=== PATIENT | male | born 1960 | race Caucasian/White ===

== ENCOUNTER 2018-02-24 10:54 | Inpatient (IN) | payer OTHER ==
[2018-02-24 11:50] LABS: PLATELET COUNT 146 10^3/uL (150-400)
[2018-02-24] MEDS ORDERED: NS 500 ML IV ONE (12:33)
--- NOTE | 2018-02-24 12:56 | EDPHY ---
H & P Smoking Status: Never smoked Time Seen by Provider: 02/24/18 11:08 HPI/ROS: CHIEF COMPLAINT: Cellulitis right leg HISTORY OF PRESENT ILLNESS: 57-year-old male presents to the emergency department with pain and swelling to his right leg over last few days. He states that he has been come significantly more red, swollen and painful in the last 12 hr. The patient had a history of trauma to the right leg a number of years ago. About 3 years ago he developed a similar type infection in his right leg which required some type of operative drainage. He states that this feels similar. He is able to bear weight on it but it does cause pain. He has a history of a previous DVT as well. He had a fever of 100.9 last night. He took Tylenol prior to arrival. He denies pain in his right knee, however he does have pain in his right groin. Denies symptoms in the left lower extremity or upper extremities bilaterally. Denies abdominal pain. No chest pain or difficulty breathing. No rash. No acute trauma. REVIEW OF SYSTEMS: Constitutional: No fever, no chills. Eyes: No double or blurry vision. ENT: No sore throat. Respiratory: No cough, no shortness of breath. Cardiac: No chest pain. Gastrointestinal: No abdominal pain, vomiting or diarrhea. Genitourinary: No dysuria. Musculoskeletal: No neck or back pain. Skin: Infection right leg as above. Neurological: No headache. (Nany Mendoza) Past Medical/Surgical History: Appendectomy, bilateral hip replacements (Nany Mendoza) Social History: (Nany Mendoza) Physical Exam: General Appearance: Alert, no distress. Current temperature 37.4 degrees. Nontoxic appearing. 137/87 Eyes: Pupils equal and round. Extraocular motions are all intact. ENT: Mouth: Mucous membranes moist. Respiratory: No wheezing, rhonchi, or rales, lungs are clear to auscultation. Cardiovascular: Regular rate and rhythm. Gastrointestinal: Abdomen is soft and nontender, no masses, no rebound or guarding, bowel sounds normal. Neurological: Alert and oriented x 3, cranial nerves II through XII grossly intact Skin: Examination the right lower leg reveals the redness and swelling noted from the right proximal lower leg down to the ankle extending into the posterior aspect of the right distal calf. Diffusely tender to palpate especially to the anterior lateral aspect of the right leg. It is warm to the touch. He has some mild calf pain with palpation. There is no obvious lymphangitis. Musculoskeletal: Nontender to palpate along the cervical, thoracic or lumbar spine. Neck is supple. Extremities: Full range of motion of his upper extremities. Swelling noted to the right lower leg as noted above. Psychiatric: Patient is oriented X 3, there is no agitation. (Nany Mendoza) Constitutional: Initial Vital Signs Temperature (C) 37 C 02/24/18 10:57 Heart Rate 92 02/24/18 10:57 Respiratory Rate 18 02/24/18 10:57 Blood Pressure 137/87 H 02/24/18 10:57 O2 Sat (%) 93 02/24/18 10:57 O2 Delivery Mode Room Air Allergies/Adverse Reactions: shellfish derived Allergy (Verified 02/24/18 10:56) Swelling/neck,face,throat Home Medications: Medication Instructions Recorded Acetaminophen [Tylenol 325mg (*)] 325 mg PO DAILY PRN 02/24/18 Fexofenadine HCl [Kim Allergy] 60 mg PO DAILY 02/24/18 Fluticasone Nasal [Flonase Nasal 1 sprays NASAL DAILY 02/24/18 [place] (RX)] Medical Decision Making - Diagnostics Imaging: Discussed imaging studies w/ inbound call center representative Radiologist - Diagnostics Imaging Results: Imaging Impressions Extremity Venous Study 02/24/18 11:37 Impression: 1. Right inguinal adenopathy 2. No evidence of deep vein thrombosis in the right lower extremity. Results called and discussed with NANY MENDOZA, at 02/24/2018 12:15 ED Course/Re-evaluation: 57-year-old male presents to the emergency department with right leg cellulitis. The patient has obvious swelling in his right leg with pain and has a history of previous DVT. Doppler ultrasound reveals no evidence of DVT. The ultrasound does however reveal right inguinal lymphadenopathy. He has a white blood cell count of over 14,000. The patient reports fever of 100.9 last night. He took Tylenol prior to arrival. Initial lactate was 1.3. Blood cultures are pending. The case was discussed with Dr. Pina, secondary supervising physician, also evaluated the patient and agrees with admission. The patient will be treated with IV antibiotics and admitted to the hospitalist. (Nany Mendoza) Differential Diagnosis: Including but not limited to cellulitis, DVT, abscess, osteomyelitis, sepsis ( Nany Mendoza) Other Provider: Independent physician evaluation I evaluated and participated in the management of the patient. I also evaluated the patient independently. My co-signature indicates that I have reviewed this chart and I agree with the findings and plan of care as documented. My personal H&P findings include: The patient presents the ED with fever, right leg pain, swelling or redness. Patient has remote history of DVT. The patient denies any acute numbness or weakness. He denies history of fall or trauma. Physical exam: General Appearance: Alert, no distress Eyes: Pupils equal and round no pallor or injection ENT, Mouth: Mucous membranes moist Respiratory: There are no retractions, lungs are clear to auscultation Cardiovascular: Regular rate and rhythm Gastrointestinal: Abdomen is soft and nontender, no masses, bowel sounds normal Neurological: A&O, normal motor function, normal sensory exam, normal cranial nerves Skin: Warm and dry, no rashes Musculoskeletal: Neck is supple nontender Extremities: Asymmetric tenderness and swelling, cellulitic changes noted to the right pretibial region ED course: Ultrasound demonstrates no evidence of a DVT. Blood cultures x2 obtained. Patient's initial lactate is reassuring. The patient's cellulitis appears to be streptococcal in nature. The patient has been started on Ancef. Consultation is made with the hospitalist service for admission at 1:30 p.m.. He will be admitted by Dr. Mcdonald. (Brad Pina) - Data Points Laboratory Results: Laboratory Results 02/24/18 11:40 02/24/18 11:40 02/24/18 02/24/18 02/24/18 12:30 11:40 11:40 WBC 14.25 10^3/uL H 10^3/uL (3.80-9.50) RBC 5.87 10^6/uL 10^6/uL (4.40-6.38) Hgb 17.1 g/dL g/dL (13.7-17.5) Hct 51.0 % % (40.0-51.0) MCV 86.9 fL fL (81.5-99.8) MCH 29.1 pg pg (27.9-34.1) MCHC 33.5 g/dL g/dL (32.4-36.7) RDW 15.4 % H % (11.5-15.2) Plt Count 146 10^3/uL L 10^3/uL (150-400) MPV 11.3 fL fL (8.7-11.7) Neut % (Auto) 81.6 % H % (39.3-74.2) Lymph % (Auto) 7.6 % L % (15.0-45.0) [place] % (Auto) 9.5 % % (4.5-13.0) Eos % (Auto) 0.4 % L % (0.6-7.6) Baso % (Auto) 0.4 % % (0.3-1.7) Nucleat RBC Rel Count 0.0 % % (0.0-0.2) Absolute Neuts (auto) 11.64 10^3/uL H 10^3/uL (1.70-6.50) Absolute Lymphs (auto) 1.09 10^3/uL 10^3/uL (1.00-3.00) Absolute Monos (auto) 1.35 10^3/uL H 10^3/uL (0.30-0.80) Absolute Eos (auto) 0.05 10^3/uL 10^3/uL (0.03-0.40) Absolute Basos (auto) 0.05 10^3/uL 10^3/uL (0.02-0.10) Absolute Nucleated RBC 0.00 10^3/uL 10^3/uL (0-0.01) Immature Gran % 0.5 % % (0.0-1.1) Immature Gran # 0.07 10^3/uL 10^3/uL (0.00-0.10) VBG Lactic Acid 1.3 mmol/L mmol/L (0.7-2.1) Sodium 142 mEq/L mEq/L (135-145) Potassium 4.3 mEq/L mEq/L (3.3-5.0) Chloride 104 mEq/L mEq/L (97-110) Carbon Dioxide 25 mEq/l mEq/l (22-31) Anion Gap 13 mEq/L mEq/L (8-16) BUN 16 mg/dL mg/dL (7-23) Creatinine 1.2 mg/dL mg/dL (0.7-1.3) Estimated GFR > 60 Glucose 84 mg/dL mg/dL (70-100) Calcium 8.5 mg/dL mg/dL (8.5-10.4) Medications Given: Discontinued Medications Acetaminophen (Tylenol) 1,000 mg PO EDNOW ONE Stop: 02/24/18 13:24 Last Admin: 02/24/18 13:25 Dose: 1,000 mg Sodium Chloride (Ns) 500 mls @ 1,000 mls/hr IV EDNOW ONE PRN Reason: Protocol Stop: 02/24/18 13:02 Last Admin: 02/24/18 12:40 Dose: 500 mls Cefazolin Sodium/Dextrose (Ancef 1 Gm (Premix)) 50 mls @ 200 mls/hr IV EDNOW ONE PRN Reason: Protocol Stop: 02/24/18 13:40 Last Admin: 02/24/18 13:36 Dose: 50 mls Departure - Departure Disposition: [facility] Inpatient Acute Clinical Impression: Cellulitis of right leg Condition: Good
[2018-02-24] MEDS ORDERED: ACETAMINOPHEN 500 MG TAB PO ONE (13:23)
[2018-02-24] MEDS ORDERED: ONDANSETRON DISINTEGRATING 4 MG TAB PO PRN (14:01)
[2018-02-24] MEDS ORDERED: ONDANSETRON 4 MG/2 ML VIAL IVP PRN (14:01)
--- NOTE | 2018-02-24 14:42 | PDGENHP ---
History and Physical - Chief Complaint Acute leg pain - History of Present Illness PCP: Dr. Manriquez Primary ortho: Dr. Nathan Primary Surg: Dr. Granados HPI: 57 yo M p/w acute leg pain characterized as burning, located R anterior lower leg with associated fever to 100.9 degrees F, swelling, erythema, myalgias , fatigue and pain and swelling located in the right groin. Patient reports the onset of the myalgias and fatigue several days prior, and then the onset of the pain swelling and erythema in the right lower extremity on the evening prior. Over the past 12 hr, the affected area has particularly worsened. He reports the pain is exacerbated by ambulation. He has not taken any antibiotics as yet. He was concerned that the affected area was located exactly where he had had a previous abscess and drainage, and the present level of swelling is approximately half that avoid it was 3 years ago when the area required surgical I and D. He denies any recent trauma to the affected area and he denies any other symptoms. History Information - Allergies/Home Medication List Allergies/Adverse Reactions: shellfish derived Allergy (Verified 02/24/18 10:56) Swelling/neck,face,throat Home Medications: Acetaminophen [Tylenol 325mg (*)] 325 mg PO DAILY PRN 02/24/18 [Last Taken 02/24] Fexofenadine HCl [Kim Allergy] 60 mg PO DAILY 02/24/18 [Last Taken 2 Days Ago ~02/22/18] Fluticasone Nasal [Flonase Nasal [place] (RX)] 1 sprays NASAL DAILY 02/24/18 [ Last Taken 2 Days Ago ~02/22/18] I have personally reviewed and updated: family history, medical history, social history, surgical history - Past Medical History Additional medical history: Provoked DVT at age 15 in the left lower extremity, status post systemic anticoagulation. Trauma to the right lower extremity with subsequent cellulitis and abscess formation requiring I&D 3 years ago. Obstructive sleep apnea. Osteoarthritis bilateral hips - Surgical History Additional surgical history: Appendectomy. Deviated septum. Bilateral hip surgery in 2014. 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, has a trip planned for tomorrow, is independent in his ADLs Review of Systems Review of Systems: ROS: 10pt was reviewed & negative except for what was stated in HPI & below Constitutional: Reports: fever, malaise, weakness Skin: Reports: other (Erythema and swelling right lower extremity) Physical Exam Physical Exam: Temp Pulse Resp BP Pulse Ox 36.7 C 101 H 18 130/76 H 92 02/24/18 14:35 02/24/18 14:35 02/24/18 14:35 02/24/18 14:35 02/24/18 14:35 Constitutional: no apparent distress, appears nourished, obese, uncomfortable Eyes: PERRL, anicteric sclera, EOMI Ears, Nose, Mouth, Throat: moist mucous membranes, hearing normal, ears appear normal, no oral mucosal ulcers Cardiovascular: regular rate and rhythym, no murmur, rub, or gallop, edema (1+ right lower extremity) Respiratory: no respiratory distress, no rales or rhonchi, clear to auscultation Gastrointestinal: normoactive bowel sounds, soft, non-tender abdomen, no palpable masses Skin: other (Blanchable mildly tender erythema anterior right lower extremity with small area of possible skin break, previous area of scar tissue, no fluctuance) Musculoskeletal: other (Full range of motion right knee and right ankle without any painful limitation) Neurologic: AAOx3, sensation intact bilaterally, No weakness, No facial droop Psychiatric: interacting appropriately, not anxious, not encephalopathic, thought process linear Lymph, Heme, Immunologic: other (Tender right inguinal lymphadenopathy with distal right lower extremity lymphangitic streaking) Lab Data & Imaging Review 02/24/18 11:40 02/24/18 11:40 WBC 14.25 10^3/uL (3.80-9.50) H 02/24/18 11:40 RBC 5.87 10^6/uL (4.40-6.38) 02/24/18 11:40 Hgb 17.1 g/dL (13.7-17.5) 02/24/18 11:40 Hct 51.0 % (40.0-51.0) 02/24/18 11:40 MCV 86.9 fL (81.5-99.8) 02/24/18 11:40 MCH 29.1 pg (27.9-34.1) 02/24/18 11:40 MCHC 33.5 g/dL (32.4-36.7) 02/24/18 11:40 RDW 15.4 % (11.5-15.2) H 02/24/18 11:40 Plt Count 146 10^3/uL (150-400) L 02/24/18 11:40 MPV 11.3 fL (8.7-11.7) 02/24/18 11:40 Neut % (Auto) 81.6 % (39.3-74.2) H 02/24/18 11:40 Lymph % (Auto) 7.6 % (15.0-45.0) L 02/24/18 11:40 [place] % (Auto) 9.5 % (4.5-13.0) 02/24/18 11:40 Eos % (Auto) 0.4 % (0.6-7.6) L 02/24/18 11:40 Baso % (Auto) 0.4 % (0.3-1.7) 02/24/18 11:40 Nucleat RBC Rel Count 0.0 % (0.0-0.2) 02/24/18 11:40 Absolute Neuts (auto) 11.64 10^3/uL (1.70-6.50) H 02/24/18 11:40 Absolute Lymphs (auto) 1.09 10^3/uL (1.00-3.00) 02/24/18 11:40 Absolute Monos (auto) 1.35 10^3/uL (0.30-0.80) H 02/24/18 11:40 Absolute Eos (auto) 0.05 10^3/uL (0.03-0.40) 02/24/18 11:40 Absolute Basos (auto) 0.05 10^3/uL (0.02-0.10) 02/24/18 11:40 Absolute Nucleated RBC 0.00 10^3/uL (0-0.01) 02/24/18 11:40 Immature Gran % 0.5 % (0.0-1.1) 02/24/18 11:40 Immature Gran # 0.07 10^3/uL (0.00-0.10) 02/24/18 11:40 VBG Lactic Acid 1.3 mmol/L (0.7-2.1) 02/24/18 12:30 Sodium 142 mEq/L (135-145) 02/24/18 11:40 Potassium 4.3 mEq/L (3.3-5.0) 02/24/18 11:40 Chloride 104 mEq/L (97-110) 02/24/18 11:40 Carbon Dioxide 25 mEq/l (22-31) 02/24/18 11:40 Anion Gap 13 mEq/L (8-16) 02/24/18 11:40 BUN 16 mg/dL (7-23) 02/24/18 11:40 Creatinine 1.2 mg/dL (0.7-1.3) 02/24/18 11:40 Estimated GFR > 60 02/24/18 11:40 Glucose 84 mg/dL (70-100) 02/24/18 11:40 Calcium 8.5 mg/dL (8.5-10.4) 02/24/18 11:40 Assessment & Plan Assessment: 57-year-old male presents with acute right lower extremity cellulitis Plan: 1. Cellulitis. Acute, new problem this provider, further workup indicated. Located in the right lower extremity with lymphangitic streaking, high risk for bacteremia as well as high risk for subsequent septic arthritis if suboptimally managed -order outside records from [facility] detailing his most recent microbiology culture results, surgical report, discharge summary from approximately 3 years ago -ultrasound demonstrating no evidence of DVT -get x-ray to ensure no gas subcutaneously -demarcate the margins and if area is expanding, will get MRI, will get surgical consultation to ensure no necrotizing fasciitis and will also broaden antibiotics from the present Ancef dosing to vancomycin -no previous history of MRSA, monitor response to Ancef -monitor fever curve and white blood cell count 2. Osteoarthritis. Chronic, reviewed outside records including 09/05/[address] Yonathan Nathan, reports the patient had left hip arthroplasty for osteoarthritis, patient currently has full range of motion of his bilateral hips without any evidence of septic arthritis, continue monitor given the severity of his lower extremity cellulitis Diet. Regular Prophylaxis. High risk patient, Lovenox 40 Code. Full Disposition. Anticipated discharge is 02/25, pending stabilization of condition outlined above. I have discussed patient's presentation with Eileen Vale, hospitalist provider , she has signed out the patient to me for evaluation.
[2018-02-24] MEDS: ACETAMINOPHEN 325 MG TAB PO PRN ×2 (17:22→21:41)
[2018-02-24] MEDS: ceFAZolin 2 GM/DEXTROSE 100 ML IV SCH (21:51)
[2018-02-25] MEDS: oxyCODONE IR 5 MG TAB PO PRN ×3 (01:37→06:28)
[2018-02-25 05:18] LABS: PLATELET COUNT 131 10^3/uL (150-400)
[2018-02-25] MEDS: ceFAZolin 2 GM/DEXTROSE 100 ML IV SCH ×3 (05:20→21:53)
[2018-02-25] MEDS: ENOXAPARIN 40 MG/0.4 ML SYR SC SCH (08:41)
[2018-02-25] MEDS: CETIRIZINE 10 MG TAB PO SCH (08:41)
[2018-02-25] MEDS: FLUTICASONE NASAL 120 SPRAYS/16 GM MDI EACHNARE SCH (08:44)
--- NOTE | 2018-02-25 11:27 | ASMTCMCOM ---
CM Note CM Note Notes: Pt admitted for R leg cellulitis. He is currently on IV ABX but may switch to oral prior to DC. CM will continue to follow. Date Signed: 02/25/2018 11:26 AM Electronically Signed By:Violeta Torres LCSW
[2018-02-25] MEDS ORDERED: LACTULOSE 20 GM/30 ML UDCUP PO PRN (11:46)
[2018-02-25] MEDS ORDERED: POLYETHYLENE GLYCOL 3350 17 GM PKT PO PRN (11:46)
[2018-02-25] MEDS ORDERED: MAGNESIUM HYDROXIDE 30 ML UDCUP PO PRN (11:46)
[2018-02-25] MEDS ORDERED: BISACODYL 10 MG SUPP PR PRN (11:46)
[2018-02-25] MEDS: SENNOSIDES/DOCUSATE SODIUM TAB PO SCH ×2 (12:51→21:53)
--- NOTE | 2018-02-25 16:14 | HOSPPROG ---
Hospitalist Progress Note Assessment/Plan: Assessment: 57-year-old male presents with acute right lower extremity cellulitis Plan: 1. Cellulitis. Acute, located in the right lower extremity with lymphangitic streaking, remains clinically unresolved today w/ persistent blanchable erythema and tenderness, but has mildly receded from the margins, R groin LAD is improving, and last fever 8 p.m. last night -reviewed outside records from [facility] detailing surgical I&D by Dr. Granados -ultrasound demonstrating no evidence of DVT -x-ray w/o gas, personally interpreted -requires additional 24hrs of IV abx given persistently elevated WBC (14,000), repeat in AM, monitor for persistent fevers -if failure to clinically improve in AM, will consult w/ ID and consider broadening Abx coverage to include MRSA -counseled patient and extensively regarding this plan, outlined above 2. Osteoarthritis. Chronic, no e/o septic arthritis Diet. Regular Prophylaxis. High risk patient, Lovenox 40 Code. Full Disposition. Anticipated discharge is uncertain, clinically unresolved, upgrade to INPT admission status as he has failed initial trial of IV Abx and requires ongoing close monitoring for improvement. Subjective: less pain in R groin, last fever 8 p.m. last night, ongoing swelling RLE Objective: Vital Signs Temp Pulse Resp BP Pulse Ox 36.8 C 89 16 124/76 H 91 L 02/25/18 11:05 02/25/18 11:05 02/25/18 11:05 02/25/18 11:05 02/25/18 11:05 Laboratory Results 02/25/18 04:52 02/25/18 04:52 02/24/18 02/25/18 02/26/18 05:59 05:59 05:59 Intake Total 1050 Balance 1050 - Time Spent With Patient Time Spent with Patient: greater than 35 minutes Time Spent with Patient: Greater than 35 minutes spent on this patients care, greater than 50% of time spent counseling, educating, and coordinating care regarding the above mentioned plan. - Physical Exam Constitutional: no apparent distress, not in pain, obese, No uncomfortable Cardiovascular: regular rate and rhythym, no murmur, rub, or gallop, edema (1+ RLE) Respiratory: no respiratory distress, no rales or rhonchi, clear to auscultation Gastrointestinal: normoactive bowel sounds, soft, non-tender abdomen, no palpable masses Skin: erythema (blanchable, confluent, tender anterior RLE), No fluctuance Musculoskeletal: other (full flexion w/o pain in R knee and full ROM R ankle w/ o pain) Neurologic: AAOx3, sensation intact bilaterally, No weakness Psychiatric: interacting appropriately, not anxious, not encephalopathic, thought process linear ICD10 Worksheet Patient Problems: Problems Problem Status Onset Primary osteoarthritis of right hip Acute Primary osteoarthritis of left hip Acute Cellulitis of right leg Acute
--- NOTE | 2018-02-25 16:39 | PDMN ---
Medical Necessity Medical necessity: Patient meets inpatient criteria per physician note and [facility] [place] M -70 Cellulitis (ongoing RLE cellulitis w/lymphangitis, s/p I&D at [facility]; LOS will be > 2 midnights for ongoing IV antibiotics for persistently elevated WBC > 14,000, possible ID consult if no improvement.)
[2018-02-26 04:43] LABS: PLATELET COUNT 164 10^3/uL (150-400)
[2018-02-26] MEDS: ceFAZolin 2 GM/DEXTROSE 100 ML IV SCH ×3 (05:21→22:03)
[2018-02-26] MEDS: ENOXAPARIN 40 MG/0.4 ML SYR SC SCH (09:46)
[2018-02-26] MEDS: FLUTICASONE NASAL 120 SPRAYS/16 GM MDI EACHNARE SCH (09:54)
[2018-02-26] MEDS: SENNOSIDES/DOCUSATE SODIUM TAB PO SCH ×2 (09:55→21:58)
[2018-02-26] MEDS: CETIRIZINE 10 MG TAB PO SCH (09:55)
--- NOTE | 2018-02-26 17:38 | HOSPPROG ---
Hospitalist Progress Note Assessment/Plan: Assessment: 57-year-old male presents with acute right lower extremity cellulitis Plan: 1. Cellulitis. Acute, located in the right lower extremity with lymphangitic streaking, remains clinically unresolved today w/ persistent blanchable erythema , leukocytosis, and organization into a fluid-filled patch of soft tissue on the posterior R calf, but has mildly receded from the margins, R groin LAD is improving, afebrile, and patient feels less lethargic -ultrasound demonstrating no evidence of abscess formation ant/post RLE, so no indication for surgical eval -d/w Dr. Spring, we agreed that, since it appears that he is clinically improving, we should continue w/ staph/strep coverage w/ IV Ancef, but cont additional 24hrs of IV abx given persistently elevated WBC (12,500) and organizing area on R posterior calf, repeat in AM -aggressively elevate RLE when in bed -if failure to clinically improve in AM, rec formal consult w/ ID and consider broadening Abx coverage to include MRSA -counseled patient and extensively regarding this plan, outlined above 2. Osteoarthritis. Chronic, no e/o septic arthritis Diet. Regular Prophylaxis. High risk patient, Lovenox 40 Code. Full Disposition. Anticipated discharge is 02/27, remains clinically unresolved Subjective: less lethargic, no subj fevers, feels like posterior R calf is somewhat more bubbly, patch in R groin less indurated Objective: Vital Signs Temp Pulse Resp BP Pulse Ox 36.8 C 99 18 138/86 H 91 L 02/26/18 16:00 02/26/18 16:00 02/26/18 16:00 02/26/18 16:00 02/26/18 16:00 Laboratory Results 02/26/18 04:25 02/26/18 04:25 02/25/18 02/26/18 02/27/18 05:59 05:59 05:59 Intake Total 700 Balance 700 - Time Spent With Patient Time Spent with Patient: greater than 35 minutes Time Spent with Patient: Greater than 35 minutes spent on this patients care, greater than 50% of time spent counseling, educating, and coordinating care regarding the above mentioned plan. ICD10 Worksheet Patient Problems: Problems Problem Status Onset Primary osteoarthritis of right hip Acute Primary osteoarthritis of left hip Acute Cellulitis of right leg Acute
[2018-02-26] MEDS: ACETAMINOPHEN 325 MG TAB PO PRN (20:35)
[2018-02-27 04:35] LABS: PLATELET COUNT 182 10^3/uL (150-400)
[2018-02-27] MEDS: ceFAZolin 2 GM/DEXTROSE 100 ML IV SCH ×3 (06:27→21:25)
[2018-02-27] MEDS: ENOXAPARIN 40 MG/0.4 ML SYR SC SCH (09:42)
[2018-02-27] MEDS: FLUTICASONE NASAL 120 SPRAYS/16 GM MDI EACHNARE SCH (10:18)
[2018-02-27] MEDS: CETIRIZINE 10 MG TAB PO SCH (10:18)
[2018-02-27] MEDS: SENNOSIDES/DOCUSATE SODIUM TAB PO SCH ×2 (10:18→21:22)
--- NOTE | 2018-02-27 13:11 | GCON ---
[f rep st] CONSULTATION INFECTIOUS DISEASE CONSULT DATE OF CONSULTATION: 02/27/2018 REQUESTING CONSULT: Dr. Dennise Vera. REASON FOR CONSULT: To assist in the management of this 57-year-old male with severe right lower extremity cellulitis. HISTORY OF PRESENT ILLNESS: The patient is a very pleasant 57-year-old male whose previous medical history is notable for the followin. Obesity. 2. A history of provoked DVT in the left lower extremity at age 15. 3. History of obstructive sleep apnea. 4. Osteoarthritis, both hips. 5. History of MSSA pretibial abscess on the right lower extremity in February of 2012 after trauma from a baseball. This required incision and drainage by Dr. Duane Gong, and cultures grew MSSA. 6. History of right lower extremity cellulitis 1 year ago, treated with oral antibiotics, not seen by our service. PREVIOUS SURGICAL HISTORY: 1. Appendectomy. 2. Bilateral hip replacement surgeries in 2014. 3. History of incision and drainage of right lower extremity pretibial abscess in 2011, as outlined above. Regarding his present issues, the patient states that he was in his usual state of good health until last Thursday evening when he developed onset of chills. The patient states on Thursday, he noticed that his right lower extremity was swollen and painful and, on February 24, he presented to the emergency department for further evaluation and treatment, given his history of cellulitis in this extremity previously. The patient states that this was much worse compared with previous. The patient had also reported a temperature to almost 101. In the ER, the patient had a temperature of 37.4 and was noted to have severe cellulitis in his right lower extremity. Ultrasound was negative for deep venous thrombosis. He was admitted to the hospitalist service and started on Ancef. The patient, over the past couple of days, has continued to have a leukocytosis and right lower extremity erythema; therefore, another ultrasound was done yesterday to rule out developing phlegmon or abscess of the area. This was negative. Given his ongoing erythema, I am now asked to assist in his management. Speaking with the patient today, he tells me that the leg is markedly better compared with admission, and it is not painful at all any longer. He is able to ambulate. He admits that he has not been keeping his leg elevated, and was just told last night by the night nurse to keep it up. He denies any nausea, vomiting, abdominal pain, diarrhea, burning with urination, or other. He states that he is not sure exactly how he got the cellulitis and denies any antecedent trauma. He was working with a weed whacker prior to this occurring and is curious if some grass perhaps nicked his leg, as his had noticed a very small, superficial, perhaps less than dime-sized abrasion in his pretibial area that I can no longer appreciate. He also has tinea cruris and tinea pedis bilaterally. REVIEW OF SYSTEMS: As outlined above. Otherwise, 10 systems are reviewed, and all are negative. PREVIOUS MEDICAL HISTORY: As outlined above. ALLERGIES: Shellfish causes hives. 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 No tobacco. Two drinks per night. No illicit substances. No recent travel. The patient does have a hot tub, but states that his last use of the hot tub was over a month ago. He keeps it clean and chlorinated. The patient has a dog who is healthy and has not been licking him, scratching him, or biting him. No other travel or relevant exposure history. The patient believes his last tetanus booster was in the past 5 years. FAMILY HISTORY: Notable for mother with non-small cell lung carcinoma. Sister with leukemia. PHYSICAL EXAM: VITAL SIGNS: T current is 36.9, T-max 37.3, heart rate 82, blood pressure 135/88. GENERAL: Overweight male, very pleasant, nontoxic, no apparent distress. HEENT: Atraumatic, normocephalic. Pupils equal, round, react to light. Extraocular movements are intact. No conjunctival injection, icterus, or petechiae. Mucous membranes moist. No oral lesions noted. Dentition in excellent repair. No cervical or supraclavicular lymphadenopathy. CARDIOVASCULAR: S1, S2. No rubs, gallops, or murmurs. LUNGS: No increased respiratory effort. Clear to auscultation bilaterally with no rales, rhonchi, or wheeze. ABDOMEN: Obese, soft. No tenderness to palpation. : Circumcised phallus. The patient has skin maceration in between his inguinal fold consistent with tinea cruris. EXTREMITIES: Left lower extremity is unremarkable. Right lower extremity is notable for a large patch of blanching erythema on his anterior thigh. There is no lymphadenitis. The right lower extremity is notable for swelling and circumferential erythema that is pinkish and blanching. There is a patch of darker raised erythema behind the calf that is not bullous and not particularly tender. There is no squeeze tenderness of the gastrocnemius muscle. The patient has tinea pedis between the web spaces of his toes bilaterally. The patient has no tingling or numbness in the area. LABORATORY DATA: White blood cell count of 11.2, down from 14, hematocrit 47, platelet count of 182. BUN and creatinine 16/1.1. Microbiologic data: Blood cultures x2 on January 25: No growth. Radiographic data as outlined above. IMPRESSION: 57-year-old male admitted with severe right lower extremity cellulitis. Presentation is most significant with streptococcal etiology. There is no evidence of pyomyositis, necrotizing fasciitis or developing abscess at this point in time, and the cellulitis is improving. Please see below for plan. PLAN: 1. The patient is not ready for discharge presently. Would continue IV Ancef 2 g IV q.8 hours for now at least through the weekend, and he is agreeable. 2. The patient needs to keep his leg elevated, and the rationale behind this was explained to him. 3. Will reassess on Thursday, at which point if he continues to have significant clinical improvement, may be able to transition to oral therapy. If it does not show significant improvement, will likely need a brief course of IV therapy , but can use once daily Ceftriaxone. (hopefully through a peripheral IV) 4. For tinea cruris, will use nystatin powder twice daily. 5. For tinea pedis, will use clotrimazole cream. The patient understands he will need to use this for several weeks if not months. Thank you very much for consulting Infectious Disease. We will continue to follow this patient with you. /[id number]/MODL MTDD
[2018-02-27] MEDS: CLOTRIMAZOLE 1% 15 GM CRTUBE TP SCH ×2 (14:27→21:21)
--- NOTE | 2018-02-27 15:41 | HOSPPROG ---
Hospitalist Progress Note Assessment/Plan: * RLE cellulitis with lymphangitic spread -IV Ancef -ID consult - d/w Dr. Rojas - may need home on IV abx due to severity * Obesity BMI 36 with DION * Tinea pedis -clotrimazole * Tinea cruris -nystatin * h/o DVT Subjective: Better Objective: Vital Signs Temp Pulse Resp BP Pulse Ox 36.9 C 85 17 152/90 H 92 02/27/18 12:30 02/27/18 12:30 02/27/18 12:30 02/27/18 12:30 02/27/18 12:30 Laboratory Results 02/27/18 04:20 02/26/18 04:25 02/26/18 02/27/18 02/28/18 05:59 05:59 05:59 Intake Total 700 2050 500 Balance 700 2050 500 RLE US - negative for DVT - Physical Exam Constitutional: no apparent distress, appears nourished, not in pain Cardiovascular: regular rate and rhythym, no murmur, rub, or gallop Respiratory: no respiratory distress, no rales or rhonchi, clear to auscultation Gastrointestinal: normoactive bowel sounds, soft, non-tender abdomen, no palpable masses Skin: erythema, rash, other (severe RLE cellulitis with lymphangitic spread), No induration Neurologic: AAOx3, sensation intact bilaterally Psychiatric: interacting appropriately, not anxious, not encephalopathic, thought process linear ICD10 Worksheet Patient Problems: Problems Problem Status Onset Cellulitis of right leg Acute Primary osteoarthritis of left hip Acute Primary osteoarthritis of right hip Acute
--- NOTE | 2018-02-27 16:06 | ASMTCMCOM ---
CM Note CM Note Notes: Patient was seen by ID today - he's not yet ready for d/c, and they will re-evaluate Thursday. If he's not able to transition to PO abx, he'll need a short course of once daily Ceftiraxone. If that's the case, we'll send a referral to an infusion company or he may come to the infusion center. Case Management will follow. Date Signed: 02/27/2018 04:05 PM Electronically Signed By:Janine Bailon RN
[2018-02-27] MEDS: NYSTATIN POWDER 15 GM BTL TP SCH ×2 (16:21→21:22)
[2018-02-27] MEDS: diphenhydrAMINE 25 MG CAP PO PRN (21:50)
[2018-02-28] MEDS: ceFAZolin 2 GM/DEXTROSE 100 ML IV SCH ×3 (05:54→20:56)
[2018-02-28] MEDS: ENOXAPARIN 40 MG/0.4 ML SYR SC SCH (08:55)
[2018-02-28] MEDS: CLOTRIMAZOLE 1% 15 GM CRTUBE TP SCH ×2 (08:56→17:28)
[2018-02-28] MEDS: NYSTATIN POWDER 15 GM BTL TP SCH ×3 (08:56→20:44)
--- NOTE | 2018-02-28 11:35 | HOSPPROG ---
Hospitalist Progress Note Assessment/Plan: The patient is a 57-year-old male with PMH DION, left lower extremity cellulitis/ abscess who was admitted for severe left lower extremity cellulitis and lymphangitis. ASSESSMENT/PLAN: Left lower extremity cellulitis and lymphangitis DION Osteoarthritis bilateral hips Obesity -continue IV antibiotic -consider to discharge to home tomorrow. If infection continues to improve, may switch to p.o. Antibiotics on discharge. -continue to ambulate. VTE prophylaxis: Lovenox Code Status: Full code Status: Inpatient for greater than 2 midnight stay. Disposition: Med surg with discharge anticipated tomorrow. This patient is new to me. Reviewed patient's chart/records for this visit. ____ Subjective: Today patient feels much better. Objective: Vital Signs Temp Pulse Resp BP Pulse Ox 36.8 C 74 14 140/91 H 92 02/28/18 08:31 02/28/18 08:31 02/28/18 08:31 02/28/18 08:31 02/28/18 08:31 Laboratory Results 02/27/18 04:20 02/26/18 04:25 02/27/18 02/28/18 03/01/18 05:59 05:59 05:59 Intake Total 2049 1049 Balance 2049 1049 OBJECTIVE: Physical Exam: General: The patient is a male who is alert and in no acute distress. HEENT: normocephalic, extraocular movements intact, conjunctivae clear. Mucous membranes moist. Neck: trachea midline, no visible masses. CV: +S1/S2, RRR, no MRG. Resp: unlabored, CTAB no RRW. Abd: soft and nondistended. Musculoskeletal: Normal muscle tone/bulk. Neuro: cranial nerves II XII grossly intact. Intact gross motor and sensory function. Psych: Appropriate mood and appropriate affect. Skin: No pallor. No petechiae. + erythema of left lower extremity noted, much less than demarcated areas. Heme/lymph: +2 pitting peripheral edema at left lower extremity. Labs/Imaging/Other Tests: Personally reviewed/interpreted. ICD10 Worksheet Patient Problems: Problems Problem Status Onset Cellulitis of right leg Acute Primary osteoarthritis of left hip Acute Primary osteoarthritis of right hip Acute
[2018-02-28] MEDS: SENNOSIDES/DOCUSATE SODIUM TAB PO SCH ×2 (11:46→20:56)
[2018-02-28] MEDS: CETIRIZINE 10 MG TAB PO SCH (11:46)
[2018-02-28] MEDS: FLUTICASONE NASAL 120 SPRAYS/16 GM MDI EACHNARE SCH (11:46)
--- NOTE | 2018-02-28 14:16 | PCMIDPN ---
Assessment/Plan: 1. Right lower extremity cellulitis, likely streptococcal etiology: Marked improvement in 24 hr with leg elevation! Continue Ancef as is. The patient is hoping not to have to continue IV antibiotics after tomorrow, but there is a chance he may need another few days of IV's; could use once daily ceftriaxone if necessary. At this point, told him that chances are 50 /50. Will reassess tomorrow. 02/28/18 14:16 Subjective: In good spirits. Sitting in chair, with leg elevated. No diarrhea. Objective: Ancef 2 g IV q.8 hours day 4 No fevers Vital Signs Temp Pulse Resp BP Pulse Ox 36.6 C 82 16 141/97 H 91 L 02/28/18 11:55 02/28/18 11:55 02/28/18 11:55 02/28/18 11:55 02/28/18 11:55 Laboratory Results 02/27/18 04:20 02/26/18 04:25 02/27/18 02/28/18 03/01/18 05:59 05:59 05:59 Intake Total 2049 105 Balance 2049 105 No new microbiology - Physical Exam General Appearance: no apparent distress, obese Extremities: other (Right lower extremity: Patch of erythema on the thigh is pinkish and has faded significantly over the past 24 hr since I saw him last. Right lower extremity skin is puckering, and swelling is down. Erythema is more pinkish has improved. Raised erythematous area on the back side of his calf is about the same. No squeeze tenderness of the gastrocnemius.) ICD10 Worksheet Patient Problems: Problems Problem Status Onset Cellulitis of right leg Acute Primary osteoarthritis of left hip Acute Primary osteoarthritis of right hip Acute
[2018-02-28] MEDS: diphenhydrAMINE 25 MG CAP PO PRN (20:55)
[2018-03-01 04:37] LABS: PLATELET COUNT 249 10^3/uL (150-400)
[2018-03-01] MEDS: ceFAZolin 2 GM/DEXTROSE 100 ML IV SCH (05:37)
[2018-03-01] MEDS: NYSTATIN POWDER 15 GM BTL TP SCH (08:33)
[2018-03-01] MEDS: CLOTRIMAZOLE 1% 15 GM CRTUBE TP SCH (08:33)
--- NOTE | 2018-03-01 08:34 | PCMIDPN ---
Assessment/Plan: Assessment: Right lower extremity cellulitis with ascending lymphangitis. Agree with Dr. Rojas that this most resembles streptococcal soft tissue infection. Patient has improved markedly on IV cefazolin. Will change him over today to oral cephalexin 500 mg p.o. 4 times daily for total of a 10 day course. Patient can follow up with Dr. Chiquis Manriquez his primary care physician in the next 7-10 days for post hospitalization follow-up. Patient advised to continue right lower extremity elevation when seated or lying down for the next couple of weeks. Cautioned that increased in redness, swelling or fevers and chills should prompt him to seek medical follow-up. Plan: 1. Discontinue IV cefazolin. 2. Start cephalexin 500 mg p.o. 4 times a day. Total of a 10 day course. 3. Follow up with primary care physician in 7-10 days post discharge. 03/01/18 08:31 Subjective: Patient is walking around the [place]. He is seated in his chair in his hospital room. He reports that his right lower extremity is significantly decreased in size and is no longer tender. He denies any fevers or chills. He denies any rash or diarrhea. He wishes to be discharged. Objective: Cefazolin # 5 Vital Signs Temp Pulse Resp BP Pulse Ox 36.9 C 83 16 145/99 H 91 L 03/01/18 07:38 03/01/18 07:38 03/01/18 07:38 03/01/18 07:38 03/01/18 07:38 Laboratory Results 03/01/18 03:58 03/01/18 03:58 02/28/18 03/01/18 03/02/18 05:59 05:59 05:59 Intake Total 1050 1550 Balance 1050 1550 - Physical Exam General Appearance: WD/WN, alert, no apparent distress, non-toxic Respiratory: lungs clear, normal breath sounds, No respiratory distress Cardiac/Chest: regular rate, rhythm, No tachycardia Extremities: non-tender, pedal edema (1+), erythema (Mild), No normal inspection (Mild edema remains in the right lower extremity. Mild erythema as well. Markedly retracted from drawn borders.), No calf tenderness, No necrosis Skin: normal color, warm/dry, No rash Neuro/Psych: alert, normal mood/affect, oriented x 3 ICD10 Worksheet Patient Problems: Problems Problem Status Onset Cellulitis of right leg Acute Primary osteoarthritis of left hip Acute Primary osteoarthritis of right hip Acute
[2018-03-01] MEDS: ENOXAPARIN 40 MG/0.4 ML SYR SC SCH (08:35)
[2018-03-01] MEDS: SENNOSIDES/DOCUSATE SODIUM TAB PO SCH (08:36)
[2018-03-01] MEDS: CETIRIZINE 10 MG TAB PO SCH (08:36)
[2018-03-01] MEDS: FLUTICASONE NASAL 120 SPRAYS/16 GM MDI EACHNARE SCH (08:36)
--- NOTE | 2018-03-01 09:09 | PDDCSUM ---
Discharge Summary Discharge Summary: Dates of service 02/24-03/01/18 Consultations: ID Procedures performed: ext US x 2 Hospital course by problem: The patient is a 57-year-old male with PMH DION, left lower extremity cellulitis/ abscess who was admitted for severe left lower extremity cellulitis and lymphangitis. ASSESSMENT/PLAN: Left lower extremity cellulitis and lymphangitis--improved on IV cefazolin and transitioned to keflex to complete 10 day course, symptoms significantly improved, amy f/u with PCP DION Osteoarthritis bilateral hips Obesity Code Status: Full code Disposition: dc home in good condition f/u with PCP in next week to determine continued improvement in LLE symptoms > 35 min spent in dc more than half in coordination of care
--- NOTE | 2018-03-01 09:36 | ASMTLACE ---
WOOE Length of stay for Answers: 3 days current admission Acuity / Level of Answers: Yes Care: Did the patient have an inpatient admission? # of Emergency department Answers: 1-2 visits in the last 6 months Score: 7 Date Signed: 03/01/2018 09:36 AM Electronically Signed By:Elena Marquez RN
--- NOTE | 2018-03-01 09:38 | ASMTCMCOM ---
CM Note CM Note Notes: Patient seen by ID this am and changed to oral antibiotics with scheduled follow up. No current needs identified. CM available should needs arise. Plan: Home independent . Date Signed: 03/01/2018 09:37 AM Electronically Signed By:Elena Marquez RN
[2018-03-01 09:46] VITALS: BP 133/88
--- NOTE | 2018-03-01 16:46 | ASDISCHSUM ---
Discharge Information Plan Status:Home with No Needs Medically Cleared to Leave:03/01/2018 Discharge Date:03/01/2018 10:30 AM CM D/C Disposition:Home, Routine, Self-Care ADT D/C Disposition:Home, Routine, Self-Care Projected Discharge Date:03/01/2018 11:00 AM Transportation at D/C:Family Discharge Delay Reason: Follow-Up Date:03/01/2018 11:00 AM Discharge Slot: Final Diagnosis: Placement Information Referral Type:Home Infusion Referral ID:[id number] Provider Name: Address 1: Phone Number: Address 2: Fax Number: City: Selection Factors: State: Patient Contact Information Contact Name:TAMMY Relationship: Address:[address] City:[facility] Phone: State/Zip Code:[place] [address] Email: Financial Information Financial Class:HMO and PPO Plans Primary Plan Desc:[employer] Primary Plan Number:[id number] Secondary Plan Desc: Secondary Plan Number: Assessment Information LACE LACE Length of stay for Answers: 3 days current admission Acuity / Level of Answers: Yes Care: Did the patient have an inpatient admission? # of Emergency department Answers: 1-2 visits in the last 6 months Score: 7 Date Signed: 03/01/2018 09:36 AM Electronically Signed By:Elena Marquez RN [facility] CM Progress Note CM Note CM Note Notes: Pt admitted for R leg cellulitis. He is currently on IV ABX but may switch to oral prior to DC. CM will continue to follow. Date Signed: 02/25/2018 11:26 AM Electronically Signed By:Violeta Torres LCSW [facility] CM Progress Note CM Note CM Note Notes: Patient was seen by ID today - he's not yet ready for d/c, and they will re-evaluate Thursday. If he's not able to transition to PO abx, he'll need a short course of once daily Ceftiraxone. If that's the case, we'll send a referral to an infusion company or he may come to the infusion [place]. Case Management will follow. Date Signed: 02/27/2018 04:05 PM Electronically Signed By:Janine Bailon RN [facility] CM Progress Note CM Note CM Note Notes: Patient seen by ID this am and changed to oral antibiotics with scheduled follow up. No current needs identified. CM available should needs arise. Plan: Home independent . Date Signed: 03/01/2018 09:37 AM Electronically Signed By:Elena Marquez RN Intervention Information
== END 2018-03-01 10:30 | disposition home or self-care (01) | DRG 603 ==
LOC: INTOOBSV 13:28 → F1N 14:52 → OBSVTOIN 02-25 10:44
PROVIDERS: ADMIT Internal Medicine; ATTEND Internal Medicine
DX: L03.115 Cellulitis of right lower limb (principal); B95.5 Unspecified streptococcus as the cause of diseases classified elsewhere; B35.3 Tinea pedis; B35.6 Tinea cruris; M16.0 Bilateral primary osteoarthritis of hip; E66.9 Obesity, unspecified; Z86.19 Personal history of other infectious and parasitic diseases; Z86.718 Personal history of other venous thrombosis and embolism; Z96.643 Presence of artificial hip joint, bilateral; Z91.013 Allergy to seafood; Z80.1 Family history of malignant neoplasm of trachea, bronchus and lung; Z68.36 Body mass index [BMI] 36.0-36.9, adult
CPT/HCPCS: 96365; G0378; J0690; J1650